=== PATIENT | female | born 1945 | race Caucasian/White ===

== ENCOUNTER 2023-12-08 14:30 | Outpatient (RCR) | payer MEDICARE, SELFPAY ==
--- NOTE | 2023-11-03 15:51 | PT.OIE ---
Current Diagnoses Parkinson's disease without dyskinesia, without mention of fluctuations (11/03/23) Unsteadiness on feet (11/03/23) Other abnormalities of gait and mobility (11/03/23) Other reduced mobility (11/03/23) Visit Care Team Role Provider Type Josef Arana MD Family Provider Non-Staff Primary Care Provider Specialty: Medical Address: [address] [place], [address] Email: Mila Hightower MD Attending Provider Non-Staff Referring Provider Specialty: Psychiatry Address: [address], [place]: [place], [place], [address] Email: Physical Therapy Initial Evaluation PT-OP-A Visit Information Start: 10/31/23 09:24 Freq: Status: Active Protocol: Document 11/03/23 13:00 MB (Rec: 11/03/23 13:21 MB [id number]) Out-Patient Physical Therapy Visit Information Visit Information Visit Type Initial Evaluation Visit Start Time 13:00 Visit Stop Time 13:40 Visit Number 1 Number of PRESS FEEDER Visits 0 Evaluation Information Evaluation Date 11/03/23 PT-OP-B Current Condition Start: 10/31/23 09:24 Freq: Status: Active Protocol: Document 11/03/23 13:00 MB (Rec: 11/03/23 13:21 [id number]) Current Condition History of Current Condition Onset Date July 2023 Current Complaints Imbalance and falls History of Current Condition Pt was dx with PD in 2008. She has seen 3 neurologists over the years. She had DBS implant on 07/29/23 mostly d/t severe right UE tremor that is now gone. Pt is right handed. Since the DBS implantation, she has had more imbalance and falling. She has had 4 falls in 2023 since the DBS implantation. She has fallen on the steps and she misjudges curbs and steps. She has not had any real dizziness or light-headedness lately. She has a straight cane that she is learning to use. She has no steps in the house and only one step to get into the house. , Aldo, is very helpful. Aldo does the driving. Devorah does her own bathing and dressing. Other medical history: arthritis, B TKR, LBP, memory loss, nerve block shot LB and spinal stenosis and she sees a spine doctor and will have another MRI Pt had PT for her PD in the past. She did therapy 1-2x/wk. Treatment Goals Patient/Caregiver Goals To improve balance and decrease falls PT-OP-C Subjective Start: 10/31/23 09:24 Freq: Status: Active Protocol: Document 11/03/23 13:00 MB (Rec: 11/03/23 13:21 MB [id number]) OP-PT Subjective Patient Comments Patient Comments See history of current condition Patient Questionnaires Other Questionnaire Name and Score FES score 33/64 PT-OP-D Balance Start: 10/31/23 09:24 Freq: Status: Active Protocol: Document 11/03/23 13:00 MB (Rec: 11/03/23 15:35 MB [id number]) OP-PT Balance Assessment Sitting Balance Static Sitting Balance Ability Normal Dynamic Sitting Balance Ability Good Standing Balance Static Standing Balance Ability Poor Dynamic Standing Balance Ability Poor Standing Balance Comments LOB and PT must catch pt has she falls posteriorly with attempted Romberg Balance Tests Romberg Romberg Unable, fall posteriorly Other Other Balance Tests Performed TUG in 11 sec with one episode of scuffing foot on carpet and CGA for safety Juarez Fall Scale Copyright Permission PT-OP-G Mobility & Gait Start: 10/31/23 09:24 Freq: Status: Active Protocol: Document 11/03/23 13:00 MB (Rec: 11/03/23 15:35 MB [id number]) OP Gait Assessment Comments Gait Comments Pt with unsteady gait and she brings in a SPC and states she needs to learn how to use it. Pt with very poor performance with SPC and used in right hand and she tends to advance with right foot rather than left foot. Ongoing training in gym and out to waiting area today with little progress. nearby and ed him as well PT-OP-H Neuro Start: 11/03/23 15:35 Freq: Status: Active Protocol: Document 11/03/23 13:00 MB (Rec: 11/03/23 15:37 MB [id number]) Coordination Evaluation Upper Extremity Tests Left Finger to Nose Test Minimal Impairment Right Finger to Nose Test Normal Performance Lower Extremity Tests Left Heel on Boudreaux Test Minimal Impairment Foot Tapping Test Normal Performance Right Heel on Boudreaux Test Normal Performance Foot Tapping Test Minimal Impairment Vital Signs Comments Vital Signs Comments Orthostatic assessment with BP and HR in LUE: supine 125/74, 78; standing 115/70, 82; standing 1' machine will not read again. Pt with mild light -headedness upon standing but no c/o light-headedness at home or when getting up PT-OP-M Strength Start: 10/31/23 09:24 Freq: Status: Active Protocol: Document 11/03/23 13:00 MB (Rec: 11/03/23 15:35 MB [id number]) Hip Strength Hip Manual Muscle Testing Bilateral Flexion (L2) 4+ Good+ Knee Strength Knee Manual Muscle Testing Bilateral Extension (L3) 5 Normal Ankle/Foot Strength Ankle and Foot Manual Muscle Testing Bilateral Dorsiflexion (L4) 5 Normal Toe Strength Toe Manual Muscle Testing Right Great Toe Extension 5 Normal Left Great Toe Extension 5 Normal PT-OP-Q Treatments Start: 10/31/23 09:24 Freq: Status: Active Protocol: Document 11/03/23 13:00 MB (Rec: 11/03/23 15:35 MB [id number]) Therapeutic Exercises Sitting Exercises 30 sec STS Reps/Minutes 15 reps in 30 sec Gait Training Gait Activity Gait training with cane Comments See gait comments above PT-OP-T Assessment and Plan Start: 10/31/23 09:24 Freq: Status: Active Protocol: Document 11/03/23 13:00 MB (Rec: 11/03/23 15:51 MB [id number]) Physical Therapy Assessment Rehab Potential Rehabilitation Potential Good Evaluation Complexity Number of Personal Factors/Comorbidities 1-2 Number of Body Systems Impaired 3 Clinical Presentation at Evaluation Evolving Impairments Impairments Activity Tolerance,Balance, Coordination,Functional Activities,Functional Mobility ,Gait,Posture,Transfers, Vestibular Other Concerns Fall Risk High Goals 5 Impairment Falls Vice President Of Marketing Goal (LTG) Pt will deny falling for at least a month to reduce risk of injury. LTG Duration 8 weeks 4 Impairment Lack of HEP Vice President [employer] Goal (LTG) Pt will perform progressive HEP with I including balance and LE and core strengthening exercises to improve gait and reduce fall risk. LTG Duration 8 weeks 3 Impairment Decreased gait speed and safety Longterm Goal (LTG) Pt will gait train at least 1200 feet in 6 minutes with or without use of AD to improve community ambulation. LTG Duration 8 weeks 2 Impairment FES 33/64 Vice President [employer] Marketing Goal (LTG) Pt will present with FES score of no more than 20/64 to reflect less fear of falling and improved quality of life. LTG Duration 8 weeks 1 Impairment Imbalance Longterm Goal (LTG) Pt will perform WNLs on standardized balance test to decrease fall risk. LTG Duration 8 weeks Assessment Summary Assessment Pt is a 78 y/o female with history of PD since 2008 and with recent DBS d/t right tremor. Her tremor has resolved since stimulator placement but her balance and gait have gotten worse. She has fall four times since July 2023 (four falls in four months). She presents with good MMT LE strength and functional LE strength with 30 sec STS today. She is severely imbalanced with static balance and dynamic balance and gait tasks. Initial cane training does not go well d/t coordination challenges and will con't to assess best AD if needed. TUG requires 11 sec and BP cuff does not read after standing 1 ' to get accurate orthostatic assessment. She does not c/o light-headedness at home. She will benefit from LE strengthening, core stability, postural, balance and gait activities to improve balance and function and to decrease fall risk. Physical Therapy Plan Frequency and Duration Frequency of Treatment 2x/Week Duration of treatment (weeks) 8 Plan of Care Start Date 11/03/23 Plan of Care End Date 01/03/24 Therapeutic Interventions Therapeutic Interventions Balance Training,Canalithic Repositioning,Coordination Training,Gait Training,Home Exercise Program,Joint Mobilizations,Manual Therapy, Neuromuscular Re-education, Patient/Caregiver Education, Self-Care/Home Management,Soft Tissue Mobilization,Taping, Therapeutic Activities, Therapeutic Exercises Modalities Cold Pack/Ice Massage,Electric Stimulation,Hot Packs, Ultrasound Next Visit Focus/Plan Next Note Type Treatment Note Next Visit Plan Further gait training with various ADs to see what works best for pt, initiate balance and LE strengthening and consider large amplitude exercises and [place] program exercises
--- NOTE | 2023-11-03 15:51 | PT.OPPOC ---
Physical, Occupational & Speech Therapy At [facility] Current Diagnoses Parkinson's disease without dyskinesia, without mention of fluctuations (11/03/23) Unsteadiness on feet (11/03/23) Other abnormalities of gait and mobility (11/03/23) Other reduced mobility (11/03/23) Visit Care Team Role Provider Type Josef Arana MD Family Provider Non-Staff Primary Care Provider Specialty: Medical Address: [address] [place], [address] Email: Mila Hightower MD Attending Provider Non-Staff Referring Provider Specialty: Psychiatry Address: [address], [place]: [place], [place], [address] Email: Plan Of Care PT-OP-T Assessment and Plan Start: 10/31/23 09:24 Freq: Status: Active Protocol: Document 11/03/23 13:00 MB (Rec: 11/03/23 15:51 MB [id number]) Physical Therapy Assessment Rehab Potential Rehabilitation Potential Good Evaluation Complexity Number of Personal Factors/Comorbidities 1-2 Number of Body Systems Impaired 3 Clinical Presentation at Evaluation Evolving Impairments Impairments Activity Tolerance,Balance, Coordination,Functional Activities,Functional Mobility ,Gait,Posture,Transfers, Vestibular Other Concerns Fall Risk High Goals 5 Impairment Falls Carpenter Railcar Goal (LTG) Pt will deny falling for at least a month to reduce risk of injury. LTG Duration 8 weeks 4 Impairment Lack of HEP Mcfp Goal (LTG) Pt will perform progressive HEP with I including balance and LE and core strengthening exercises to improve gait and reduce fall risk. LTG Duration 8 weeks 3 Impairment Decreased gait speed and safety Mcfp Goal (LTG) Pt will gait train at least 1200 feet in 6 minutes with or without use of AD to improve community ambulation. LTG Duration 8 weeks 2 Impairment FES 33/64 Carpenter Railcar Goal (LTG) Pt will present with FES score of no more than 20/64 to reflect less fear of falling and improved quality of life. LTG Duration 8 weeks 1 Impairment Imbalance Mcfp Goal (LTG) Pt will perform WNLs on standardized balance test to decrease fall risk. LTG Duration 8 weeks Assessment Summary Assessment Pt is a 78 y/o female with history of PD since 2008 and with recent DBS d/t right tremor. Her tremor has resolved since stimulator placement but her balance and gait have gotten worse. She has fall four times since July 2023 (four falls in four months). She presents with good MMT LE strength and functional LE strength with 30 sec STS today. She is severely imbalanced with static balance and dynamic balance and gait tasks. Initial cane training does not go well d/t coordination challenges and will con't to assess best AD if needed. TUG requires 11 sec and BP cuff does not read after standing 1 ' to get accurate orthostatic assessment. She does not c/o light-headedness at home. She will benefit from LE strengthening, core stability, postural, balance and gait activities to improve balance and function and to decrease fall risk. Physical Therapy Plan Frequency and Duration Frequency of Treatment 2x/Week Duration of treatment (weeks) 8 Plan of Care Start Date 11/03/23 Plan of Care End Date 01/03/24 Therapeutic Interventions Therapeutic Interventions Balance Training,Canalithic Repositioning,Coordination Training,Gait Training,Home Exercise Program,Joint Mobilizations,Manual Therapy, Neuromuscular Re-education, Patient/Caregiver Education, Self-Care/Home Management,Soft Tissue Mobilization,Taping, Therapeutic Activities, Therapeutic Exercises Modalities Cold Pack/Ice Massage,Electric Stimulation,Hot Packs, Ultrasound Next Visit Focus/Plan Next Note Type Treatment Note Next Visit Plan Further gait training with various ADs to see what works best for pt, initiate balance and LE strengthening and consider large amplitude exercises and [place] program exercises Plan of Care Dates Plan of Care Start Date 11/03/23 Plan of Care End Date 01/03/24 Electronically Signed by: Alesia Martínez PT 11/03/23 0489 If you are in agreement with this Plan of Care, please return a signed and dated copy. I have reviewed this Plan of Care and certify that the skilled therapy services above are required to meet the patient?s needs. Physician Signature Date Printed Name and Credentials Clinical Instructor Signature Printed Name and Credentials
--- NOTE | 2023-11-08 16:01 | PT.OTN ---
Current Diagnoses Parkinson's disease without dyskinesia, without mention of fluctuations (11/08/23) Unsteadiness on feet (11/08/23) Other abnormalities of gait and mobility (11/08/23) Other reduced mobility (11/08/23) Physical Therapy Treatment Note PT-OP-A Visit Information Start: 10/31/23 09:24 Freq: Status: Active Protocol: Document 11/08/23 15:11 MB (Rec: 11/08/23 16:01 MB [id number]) Out-Patient Physical Therapy Visit Information Visit Information Visit Type Treatment Note Visit Start Time 15:15 Visit Stop Time 15:55 Visit Number 2 Number of PLOW MECHANIC Visits 0 PT-OP-B Current Condition Start: 10/31/23 09:24 Freq: Status: Active Protocol: Document 11/03/23 13:00 MB (Rec: 11/03/23 13:21 MB [id number]) Current Condition History of Current Condition Onset Date July 2023 Current Complaints Imbalance and falls History of Current Condition Pt was dx with PD in 2008. She has seen 3 neurologists over the years. She had DBS implant on 07/29/23 mostly d/t severe right UE tremor that is now gone. Pt is right handed. Since the DBS implantation, she has had more imbalance and falling. She has had 4 falls in 2023 since the DBS implantation. She has fallen on the steps and she misjudges curbs and steps. She has not had any real dizziness or light-headedness lately. She has a straight cane that she is learning to use. She has no steps in the house and only one step to get into the house. , Aldo, is very helpful. Aldo does the driving. Devorah does her own bathing and dressing. Other medical history: arthritis, B TKR, LBP, memory loss, nerve block shot LB and spinal stenosis and she sees a spine doctor and will have another MRI Pt had PT for her PD in the past. She did therapy 1-2x/wk. Treatment Goals Patient/Caregiver Goals To improve balance and decrease falls PT-OP-C Subjective Start: 10/31/23 09:24 Freq: Status: Active Protocol: Document 11/08/23 15:11 MB (Rec: 11/08/23 16:01 MB [id number]) OP-PT Subjective Patient Comments Patient Comments Pt worked on the walking with the SPC and she is still having trouble with it. PT-OP-D Balance Start: 10/31/23 09:24 Freq: Status: Active Protocol: Document 11/03/23 13:00 MB (Rec: 11/03/23 15:35 MB [id number]) OP-PT Balance Assessment Sitting Balance Static Sitting Balance Ability Normal Dynamic Sitting Balance Ability Good Standing Balance Static Standing Balance Ability Poor Dynamic Standing Balance Ability Poor Standing Balance Comments LOB and PT must catch pt has she falls posteriorly with attempted Romberg Balance Tests Romberg Romberg Unable, fall posteriorly Other Other Balance Tests Performed TUG in 11 sec with one episode of scuffing foot on carpet and CGA for safety Juarez Fall Scale Copyright Permission PT-OP-G Mobility & Gait Start: 10/31/23 09:24 Freq: Status: Active Protocol: Document 11/03/23 13:00 MB (Rec: 11/03/23 15:35 MB [id number]) OP Gait Assessment Comments Gait Comments Pt with unsteady gait and she brings in a SPC and states she needs to learn how to use it. Pt with very poor performance with SPC and used in right hand and she tends to advance with right foot rather than left foot. Ongoing training in gym and out to waiting area today with little progress. nearby and ed him as well PT-OP-H Neuro Start: 11/03/23 15:35 Freq: Status: Active Protocol: Document 11/03/23 13:00 MB (Rec: 11/03/23 15:37 MB [id number]) Coordination Evaluation Upper Extremity Tests Left Finger to Nose Test Minimal Impairment Right Finger to Nose Test Normal Performance Lower Extremity Tests Left Heel on Boudreaux Test Minimal Impairment Foot Tapping Test Normal Performance Right Heel on Boudreaux Test Normal Performance Foot Tapping Test Minimal Impairment Vital Signs Comments Vital Signs Comments Orthostatic assessment with BP and HR in LUE: supine 125/74, 78; standing 115/70, 82; standing 1' machine will not read again. Pt with mild light -headedness upon standing but no c/o light-headedness at home or when getting up PT-OP-M Strength Start: 10/31/23 09:24 Freq: Status: Active Protocol: Document 11/03/23 13:00 MB (Rec: 11/03/23 15:35 MB [id number]) Hip Strength Hip Manual Muscle Testing Bilateral Flexion (L2) 4+ Good+ Knee Strength Knee Manual Muscle Testing Bilateral Extension (L3) 5 Normal Ankle/Foot Strength Ankle and Foot Manual Muscle Testing Bilateral Dorsiflexion (L4) 5 Normal Toe Strength Toe Manual Muscle Testing Right Great Toe Extension 5 Normal Left Great Toe Extension 5 Normal PT-OP-Q Treatments Start: 10/31/23 09:24 Freq: Status: Active Protocol: Document 11/08/23 15:11 MB (Rec: 11/08/23 16:01 [id number]) Gait Training Gait Activity Gait training with rollator Comments Balance, gait pattern, reciprocal gait and speed and stability are much better with rollator. Ed pt on locking and unlocking, how to sit down upon and stand up from, back up to car with rollator, gait in grass and up and down curb with cues and occ min A for curb training and CGA other gait surfaces. Gait training with two or one walking sticks Comments Pt tends to step too long and quickly and drags sticks behind, lowered sticks and she did better picking it up. One stick in right hand looks better than the cane 6MWT Comments 1101 feet in 6 minutes and pt with intermittent dysmetria in right LE and in right UE, decreased arm swing on the right and occ IR positioning right LE with gait Gait training with cane Comments Pt con't to have a lot of trouble with using cane in right and left hand, trouble advancing cane with opposite foot and gait pattern is more steady without use of cane PT-OP-T Assessment and Plan Start: 10/31/23 09:24 Freq: Status: Active Protocol: Document 11/08/23 15:11 MB (Rec: 11/08/23 16:01 [id number]) Physical Therapy Assessment Rehab Potential Rehabilitation Potential Good Evaluation Complexity Number of Personal Factors/Comorbidities 1-2 Number of Body Systems Impaired 3 Clinical Presentation at Evaluation Evolving Impairments Impairments Activity Tolerance,Balance, Coordination,Functional Activities,Functional Mobility ,Gait,Posture,Transfers, Vestibular Other Concerns Fall Risk High Goals 5 Impairment Falls Route Inspector Goal (LTG) Pt will deny falling for at least a month to reduce risk of injury. LTG Duration 8 weeks 4 Impairment Lack of HEP Snf Goal (LTG) Pt will perform progressive HEP with I including balance and LE and core strengthening exercises to improve gait and reduce fall risk. LTG Duration 8 weeks 3 Impairment Decreased gait speed and safety Snf Goal (LTG) Pt will gait train at least 1200 feet in 6 minutes with or without use of AD to improve community ambulation. LTG Duration 8 weeks 2 Impairment FES 33/64 Route Inspector Goal (LTG) Pt will present with FES score of no more than 20/64 to reflect less fear of falling and improved quality of life. LTG Duration 8 weeks 1 Impairment Imbalance Snf Goal (LTG) Pt will perform WNLs on standardized balance test to decrease fall risk. LTG Duration 8 weeks Assessment Summary Assessment Gait training with various ADs today and pt is most safe with rollator outside. Physical Therapy Plan Frequency and Duration Frequency of Treatment 2x/Week Duration of treatment (weeks) 8 Plan of Care Start Date 11/03/23 Plan of Care End Date 01/03/24 Therapeutic Interventions Therapeutic Interventions Balance Training,Canalithic Repositioning,Coordination Training,Gait Training,Home Exercise Program,Joint Mobilizations,Manual Therapy, Neuromuscular Re-education, Patient/Caregiver Education, Self-Care/Home Management,Soft Tissue Mobilization,Taping, Therapeutic Activities, Therapeutic Exercises Modalities Cold Pack/Ice Massage,Electric Stimulation,Hot Packs, Ultrasound Next Visit Focus/Plan Next Note Type Treatment Note Next Visit Plan [place] balance testing, step training, other Balance actitivies and LE strengthening and consider large amplitude exercises and [place] program exercises
--- NOTE | 2023-11-10 15:38 | PT.OTN ---
Current Diagnoses Parkinson's disease without dyskinesia, without mention of fluctuations (11/10/23) Unsteadiness on feet (11/10/23) Other abnormalities of gait and mobility (11/10/23) Other reduced mobility (11/10/23) Physical Therapy Treatment Note PT-OP-A Visit Information Start: 10/31/23 09:24 Freq: Status: Active Protocol: Document 11/10/23 14:32 MB (Rec: 11/10/23 15:38 MB [id number]) Out-Patient Physical Therapy Visit Information Visit Information Visit Type Treatment Note Visit Start Time 14:32 Visit Stop Time 15:12 Visit Number 3 Number of ONLINE TRADER Visits 0 PT-OP-B Current Condition Start: 10/31/23 09:24 Freq: Status: Active Protocol: Document 11/03/23 13:00 MB (Rec: 11/03/23 13:21 MB [id number]) Current Condition History of Current Condition Onset Date July 2023 Current Complaints Imbalance and falls History of Current Condition Pt was dx with PD in 2008. She has seen 3 neurologists over the years. She had DBS implant on 07/29/23 mostly d/t severe right UE tremor that is now gone. Pt is right handed. Since the DBS implantation, she has had more imbalance and falling. She has had 4 falls in 2023 since the DBS implantation. She has fallen on the steps and she misjudges curbs and steps. She has not had any real dizziness or light-headedness lately. She has a straight cane that she is learning to use. She has no steps in the house and only one step to get into the house. , Aldo, is very helpful. Aldo does the driving. Devorah does her own bathing and dressing. Other medical history: arthritis, B TKR, LBP, memory loss, nerve block shot LB and spinal stenosis and she sees a spine doctor and will have another MRI Pt had PT for her PD in the past. She did therapy 1-2x/wk. Treatment Goals Patient/Caregiver Goals To improve balance and decrease falls PT-OP-C Subjective Start: 10/31/23 09:24 Freq: Status: Active Protocol: Document 11/10/23 14:32 MB (Rec: 11/10/23 15:38 MB [id number]) OP-PT Subjective Patient Comments Patient Comments Pt did not yet go for a walk with the walker yet. PT-OP-D Balance Start: 10/31/23 09:24 Freq: Status: Active Protocol: Document 11/03/23 13:00 MB (Rec: 11/03/23 15:35 MB [id number]) OP-PT Balance Assessment Sitting Balance Static Sitting Balance Ability Normal Dynamic Sitting Balance Ability Good Standing Balance Static Standing Balance Ability Poor Dynamic Standing Balance Ability Poor Standing Balance Comments LOB and PT must catch pt has she falls posteriorly with attempted Romberg Balance Tests Romberg Romberg Unable, fall posteriorly Other Other Balance Tests Performed TUG in 11 sec with one episode of scuffing foot on carpet and CGA for safety Juarez Fall Scale Copyright Permission PT-OP-G Mobility & Gait Start: 10/31/23 09:24 Freq: Status: Active Protocol: Document 11/03/23 13:00 MB (Rec: 11/03/23 15:35 MB [id number]) OP Gait Assessment Comments Gait Comments Pt with unsteady gait and she brings in a SPC and states she needs to learn how to use it. Pt with very poor performance with SPC and used in right hand and she tends to advance with right foot rather than left foot. Ongoing training in gym and out to waiting area today with little progress. nearby and ed him as well PT-OP-H Neuro Start: 11/03/23 15:35 Freq: Status: Active Protocol: Document 11/03/23 13:00 MB (Rec: 11/03/23 15:37 MB [id number]) Coordination Evaluation Upper Extremity Tests Left Finger to Nose Test Minimal Impairment Right Finger to Nose Test Normal Performance Lower Extremity Tests Left Heel on Boudreaux Test Minimal Impairment Foot Tapping Test Normal Performance Right Heel on Boudreaux Test Normal Performance Foot Tapping Test Minimal Impairment Vital Signs Comments Vital Signs Comments Orthostatic assessment with BP and HR in LUE: supine 125/74, 78; standing 115/70, 82; standing 1' machine will not read again. Pt with mild light -headedness upon standing but no c/o light-headedness at home or when getting up PT-OP-M Strength Start: 10/31/23 09:24 Freq: Status: Active Protocol: Document 11/03/23 13:00 MB (Rec: 11/03/23 15:35 MB [id number]) Hip Strength Hip Manual Muscle Testing Bilateral Flexion (L2) 4+ Good+ Knee Strength Knee Manual Muscle Testing Bilateral Extension (L3) 5 Normal Ankle/Foot Strength Ankle and Foot Manual Muscle Testing Bilateral Dorsiflexion (L4) 5 Normal Toe Strength Toe Manual Muscle Testing Right Great Toe Extension 5 Normal Left Great Toe Extension 5 Normal PT-OP-Q Treatments Start: 10/31/23 09:24 Freq: Status: Active Protocol: Document 11/10/23 14:32 MB (Rec: 11/10/23 15:38 MB [id number]) Gait Training Gait Activity Gait training with rollator Comments Gait training with rollator today to work on larger amplitude, BIG stepping and pt 's gait looks much better with rollator than without AD and PT con't to encourage pt to gait with rollator to improve gait pattern since that is what she wants to work on and given central changes from PD Neuro Re-Education Treatment Balance Activities Corner exercise Comments Romberg and Romberg EC are too easy, partial tandem is challenging enough and more trouble with right toe in instep of left foot Medina Comments 41/56 and most trouble with attempted SLS and tandem Self-Care/Home Management Treatment Education Other Education Provided handout about LSVT BIG and ed to pt and then , Aldo, after treatment about benefits of high intensity PT treatment focused on large amplitude gait and exercise and pt and to think about. Pt needs back injection and lives in [facility]. PT-OP-T Assessment and Plan Start: 10/31/23 09:24 Freq: Status: Active Protocol: Document 11/10/23 14:32 MB (Rec: 11/10/23 15:38 MB [id number]) Physical Therapy Assessment Rehab Potential Rehabilitation Potential Good Evaluation Complexity Number of Personal Factors/Comorbidities 1-2 Number of Body Systems Impaired 3 Clinical Presentation at Evaluation Evolving Impairments Impairments Activity Tolerance,Balance, Coordination,Functional Activities,Functional Mobility ,Gait,Posture,Transfers, Vestibular Other Concerns Fall Risk High Goals 5 Impairment Falls Crop Farm Helper Goal (LTG) Pt will deny falling for at least a month to reduce risk of injury. LTG Duration 8 weeks 4 Impairment Lack of HEP Mcfp Goal (LTG) Pt will perform progressive HEP with I including balance and LE and core strengthening exercises to improve gait and reduce fall risk. LTG Duration 8 weeks 3 Impairment Decreased gait speed and safety Mcfp Goal (LTG) Pt will gait train at least 1200 feet in 6 minutes with or without use of AD to improve community ambulation. LTG Duration 8 weeks 2 Impairment FES 33/64 Mcfp Goal (LTG) Pt will present with FES score of no more than 20/64 to reflect less fear of falling and improved quality of life. LTG Duration 8 weeks 1 Impairment Imbalance Mcfp Goal (LTG) Pt will perform WNLs on standardized balance test to decrease fall risk. LTG Duration 8 weeks Assessment Summary Assessment Medina score 41/56 today indicating increased risk for falling and added partial tandem to HEP today. Worked on large amplitude gait and work on getting in large amplitude exercises into PT course. Physical Therapy Plan Frequency and Duration Frequency of Treatment 2x/Week Duration of treatment (weeks) 8 Plan of Care Start Date 11/03/23 Plan of Care End Date 01/03/24 Therapeutic Interventions Therapeutic Interventions Balance Training,Canalithic Repositioning,Coordination Training,Gait Training,Home Exercise Program,Joint Mobilizations,Manual Therapy, Neuromuscular Re-education, Patient/Caregiver Education, Self-Care/Home Management,Soft Tissue Mobilization,Taping, Therapeutic Activities, Therapeutic Exercises Modalities Cold Pack/Ice Massage,Electric Stimulation,Hot Packs, Ultrasound Next Visit Focus/Plan Next Note Type Treatment Note Next Visit Plan Step training, other Balance actitivies and LE strengthening and consider large amplitude exercises and [place] program exercises
--- NOTE | 2023-11-15 16:04 | PT.OTN ---
Current Diagnoses Parkinson's disease without dyskinesia, without mention of fluctuations (11/15/23) Unsteadiness on feet (11/15/23) Other abnormalities of gait and mobility (11/15/23) Other reduced mobility (11/15/23) Physical Therapy Treatment Note PT-OP-A Visit Information Start: 10/31/23 09:24 Freq: Status: Active Protocol: Document 11/15/23 15:17 MB (Rec: 11/15/23 16:04 MB [id number]) Out-Patient Physical Therapy Visit Information Visit Information Visit Type Treatment Note Visit Start Time 15:17 Visit Stop Time 15:57 Visit Number 4 Number of PLANT OPERATOR/SHIFT SUPERVISOR Visits 0 PT-OP-B Current Condition Start: 10/31/23 09:24 Freq: Status: Active Protocol: Document 11/03/23 13:00 MB (Rec: 11/03/23 13:21 MB [id number]) Current Condition History of Current Condition Onset Date July 2023 Current Complaints Imbalance and falls History of Current Condition Pt was dx with PD in 2008. She has seen 3 neurologists over the years. She had DBS implant on 07/29/23 mostly d/t severe right UE tremor that is now gone. Pt is right handed. Since the DBS implantation, she has had more imbalance and falling. She has had 4 falls in 2023 since the DBS implantation. She has fallen on the steps and she misjudges curbs and steps. She has not had any real dizziness or light-headedness lately. She has a straight cane that she is learning to use. She has no steps in the house and only one step to get into the house. , Aldo, is very helpful. Aldo does the driving. Devorah does her own bathing and dressing. Other medical history: arthritis, B TKR, LBP, memory loss, nerve block shot LB and spinal stenosis and she sees a spine doctor and will have another MRI Pt had PT for her PD in the past. She did therapy 1-2x/wk. Treatment Goals Patient/Caregiver Goals To improve balance and decrease falls PT-OP-C Subjective Start: 10/31/23 09:24 Freq: Status: Active Protocol: Document 11/15/23 15:17 MB (Rec: 11/15/23 16:04 MB [id number]) OP-PT Subjective Patient Comments Patient Comments Pt and ask about a stand up walker and after discussion, PT encourages pt to go ahead and get a regular 4WRW. Pt is going to have a back injection for stenosis in the next few weeks. Her memory is worse after the brain surgery and she is seeing Joe ADJUNCT INSTRUCTOR, for this. PT-OP-D Balance Start: 10/31/23 09:24 Freq: Status: Active Protocol: Document 11/03/23 13:00 MB (Rec: 11/03/23 15:35 MB [id number]) OP-PT Balance Assessment Sitting Balance Static Sitting Balance Ability Normal Dynamic Sitting Balance Ability Good Standing Balance Static Standing Balance Ability Poor Dynamic Standing Balance Ability Poor Standing Balance Comments LOB and PT must catch pt has she falls posteriorly with attempted Romberg Balance Tests Romberg Romberg Unable, fall posteriorly Other Other Balance Tests Performed TUG in 11 sec with one episode of scuffing foot on carpet and CGA for safety Juarez Fall Scale Copyright Permission PT-OP-G Mobility & Gait Start: 10/31/23 09:24 Freq: Status: Active Protocol: Document 11/03/23 13:00 MB (Rec: 11/03/23 15:35 MB [id number]) OP Gait Assessment Comments Gait Comments Pt with unsteady gait and she brings in a SPC and states she needs to learn how to use it. Pt with very poor performance with SPC and used in right hand and she tends to advance with right foot rather than left foot. Ongoing training in gym and out to waiting area today with little progress. nearby and ed him as well PT-OP-H Neuro Start: 11/03/23 15:35 Freq: Status: Active Protocol: Document 11/03/23 13:00 MB (Rec: 11/03/23 15:37 MB [id number]) Coordination Evaluation Upper Extremity Tests Left Finger to Nose Test Minimal Impairment Right Finger to Nose Test Normal Performance Lower Extremity Tests Left Heel on Boudreaux Test Minimal Impairment Foot Tapping Test Normal Performance Right Heel on Boudreaux Test Normal Performance Foot Tapping Test Minimal Impairment Vital Signs Comments Vital Signs Comments Orthostatic assessment with BP and HR in LUE: supine 125/74, 78; standing 115/70, 82; standing 1' machine will not read again. Pt with mild light -headedness upon standing but no c/o light-headedness at home or when getting up PT-OP-M Strength Start: 10/31/23 09:24 Freq: Status: Active Protocol: Document 11/03/23 13:00 MB (Rec: 11/03/23 15:35 MB [id number]) Hip Strength Hip Manual Muscle Testing Bilateral Flexion (L2) 4+ Good+ Knee Strength Knee Manual Muscle Testing Bilateral Extension (L3) 5 Normal Ankle/Foot Strength Ankle and Foot Manual Muscle Testing Bilateral Dorsiflexion (L4) 5 Normal Toe Strength Toe Manual Muscle Testing Right Great Toe Extension 5 Normal Left Great Toe Extension 5 Normal PT-OP-Q Treatments Start: 10/31/23 09:24 Freq: Status: Active Protocol: Document 11/15/23 15:17 MB (Rec: 11/15/23 16:04 MB [id number]) Gait Training Gait Activity BIG walking without AD Comments Performed in gym and out into waiting area various times during treatment to improve symmetrical BIG stepping in setting of right sided dysmetria with UE and LE Neuro Re-Education Treatment Balance Activities Cone weaving Comments Easier for pt and right arm con't to move and left arm does not // bar activities Comments BIG stepping one foot per step over mini kayden, all hurdles in // bars x8 reps and pt with dysmetria with right LE, especially when leading with the foot. Side stepping looks good as far as BIG steps and cues to clear right foot when left foot leading (side stepping to left) and cues not to hear the right foot. Backwards steps tend to be more step-to right and then left foot rather than step through and cues for ongoing step-through and her right arm moves some and left arm near side and more dysmmetria with this activity, backward walking in hallway with ballet bar at side and pt has increased right arm swing with backward walker, driving movement through right arm, more work with mini hurdles with BIG steps and clearning hurdles and pt is able to perform well when thinking through it and she does fatigue, some arm sliding on the // bars, three cone tap with one on each side and one on top with hand support on // bar and pt tends to turn towards the cone rather than reach outside base Self-Care/Home Management Treatment Education Other Education Discussion and viewing walker photos with pt and and education that standard rollator is best for pt right now so that she has smaller turning range and can work on big stepping with gait to improve amplitude PT-OP-T Assessment and Plan Start: 10/31/23 09:24 Freq: Status: Active Protocol: Document 11/15/23 15:17 MB (Rec: 11/15/23 16:04 MB [id number]) Physical Therapy Assessment Rehab Potential Rehabilitation Potential Good Evaluation Complexity Number of Personal Factors/Comorbidities 1-2 Number of Body Systems Impaired 3 Clinical Presentation at Evaluation Evolving Impairments Impairments Activity Tolerance,Balance, Coordination,Functional Activities,Functional Mobility ,Gait,Posture,Transfers, Vestibular Other Concerns Fall Risk High Goals 5 Impairment Falls Plant Production Manager Goal (LTG) Pt will deny falling for at least a month to reduce risk of injury. LTG Duration 8 weeks 4 Impairment Lack of HEP Fdc Goal (LTG) Pt will perform progressive HEP with I including balance and LE and core strengthening exercises to improve gait and reduce fall risk. LTG Duration 8 weeks 3 Impairment Decreased gait speed and safety Plant Production Manager Goal (LTG) Pt will gait train at least 1200 feet in 6 minutes with or without use of AD to improve community ambulation. LTG Duration 8 weeks 2 Impairment FES 33/64 Fdc Goal (LTG) Pt will present with FES score of no more than 20/64 to reflect less fear of falling and improved quality of life. LTG Duration 8 weeks 1 Impairment Imbalance Plant Production Manager Goal (LTG) Pt will perform WNLs on standardized balance test to decrease fall risk. LTG Duration 8 weeks Assessment Summary Assessment For home, encouraged pt and to work on walking outside with and rollator for exercise and to get used to walker and for pt to con't partial tandem. Right sided dysmetria con't in right leg and right arm with gait. Physical Therapy Plan Frequency and Duration Frequency of Treatment 2x/Week Duration of treatment (weeks) 8 Plan of Care Start Date 11/03/23 Plan of Care End Date 01/03/24 Therapeutic Interventions Therapeutic Interventions Balance Training,Canalithic Repositioning,Coordination Training,Gait Training,Home Exercise Program,Joint Mobilizations,Manual Therapy, Neuromuscular Re-education, Patient/Caregiver Education, Self-Care/Home Management,Soft Tissue Mobilization,Taping, Therapeutic Activities, Therapeutic Exercises Modalities Cold Pack/Ice Massage,Electric Stimulation,Hot Packs, Ultrasound Next Visit Focus/Plan Next Note Type Treatment Note Next Visit Plan Ongoing balance actitivies and LE strengthening and consider large amplitude exercises and [place] program exercises, consider adding balance exercises for to assist with at home
--- NOTE | 2023-11-18 13:02 | PT.OTN ---
Current Diagnoses Parkinson's disease without dyskinesia, without mention of fluctuations (11/18/23) Unsteadiness on feet (11/18/23) Other abnormalities of gait and mobility (11/18/23) Other reduced mobility (11/18/23) Physical Therapy Treatment Note PT-OP-A Visit Information Start: 10/31/23 09:24 Freq: Status: Active Protocol: Document 11/18/23 10:37 SW (Rec: 11/18/23 13:02 SW [id number]) Out-Patient Physical Therapy Visit Information Visit Information Visit Type Treatment Note Visit Start Time 10:32 Visit Stop Time 10:12 Visit Number 5 Number of ENGINEERING AIDE Visits 40 PT-OP-B Current Condition Start: 10/31/23 09:24 Freq: Status: Active Protocol: Document 11/03/23 13:00 MB (Rec: 11/03/23 13:21 MB [id number]) Current Condition History of Current Condition Onset Date July 2023 Current Complaints Imbalance and falls History of Current Condition Pt was dx with PD in 2008. She has seen 3 neurologists over the years. She had DBS implant on 07/29/23 mostly d/t severe right UE tremor that is now gone. Pt is right handed. Since the DBS implantation, she has had more imbalance and falling. She has had 4 falls in 2023 since the DBS implantation. She has fallen on the steps and she misjudges curbs and steps. She has not had any real dizziness or light-headedness lately. She has a straight cane that she is learning to use. She has no steps in the house and only one step to get into the house. , Aldo, is very helpful. Aldo does the driving. Devorah does her own bathing and dressing. Other medical history: arthritis, B TKR, LBP, memory loss, nerve block shot LB and spinal stenosis and she sees a spine doctor and will have another MRI Pt had PT for her PD in the past. She did therapy 1-2x/wk. Treatment Goals Patient/Caregiver Goals To improve balance and decrease falls PT-OP-C Subjective Start: 10/31/23 09:24 Freq: Status: Active Protocol: Document 11/18/23 10:37 SW (Rec: 11/18/23 13:02 SW [id number]) OP-PT Subjective Patient Comments Patient Comments Pt ambulated into session today with 4WW. PT-OP-D Balance Start: 10/31/23 09:24 Freq: Status: Active Protocol: Document 11/03/23 13:00 MB (Rec: 11/03/23 15:35 MB [id number]) OP-PT Balance Assessment Sitting Balance Static Sitting Balance Ability Normal Dynamic Sitting Balance Ability Good Standing Balance Static Standing Balance Ability Poor Dynamic Standing Balance Ability Poor Standing Balance Comments LOB and PT must catch pt has she falls posteriorly with attempted Romberg Balance Tests Romberg Romberg Unable, fall posteriorly Other Other Balance Tests Performed TUG in 11 sec with one episode of scuffing foot on carpet and CGA for safety Juarez Fall Scale Copyright Permission PT-OP-G Mobility & Gait Start: 10/31/23 09:24 Freq: Status: Active Protocol: Document 11/03/23 13:00 MB (Rec: 11/03/23 15:35 MB [id number]) OP Gait Assessment Comments Gait Comments Pt with unsteady gait and she brings in a SPC and states she needs to learn how to use it. Pt with very poor performance with SPC and used in right hand and she tends to advance with right foot rather than left foot. Ongoing training in gym and out to waiting area today with little progress. nearby and ed him as well PT-OP-H Neuro Start: 11/03/23 15:35 Freq: Status: Active Protocol: Document 11/03/23 13:00 MB (Rec: 11/03/23 15:37 MB [id number]) Coordination Evaluation Upper Extremity Tests Left Finger to Nose Test Minimal Impairment Right Finger to Nose Test Normal Performance Lower Extremity Tests Left Heel on Boudreaux Test Minimal Impairment Foot Tapping Test Normal Performance Right Heel on Boudreaux Test Normal Performance Foot Tapping Test Minimal Impairment Vital Signs Comments Vital Signs Comments Orthostatic assessment with BP and HR in LUE: supine 125/74, 78; standing 115/70, 82; standing 1' machine will not read again. Pt with mild light -headedness upon standing but no c/o light-headedness at home or when getting up PT-OP-M Strength Start: 10/31/23 09:24 Freq: Status: Active Protocol: Document 11/03/23 13:00 MB (Rec: 11/03/23 15:35 MB [id number]) Hip Strength Hip Manual Muscle Testing Bilateral Flexion (L2) 4+ Good+ Knee Strength Knee Manual Muscle Testing Bilateral Extension (L3) 5 Normal Ankle/Foot Strength Ankle and Foot Manual Muscle Testing Bilateral Dorsiflexion (L4) 5 Normal Toe Strength Toe Manual Muscle Testing Right Great Toe Extension 5 Normal Left Great Toe Extension 5 Normal PT-OP-Q Treatments Start: 10/31/23 09:24 Freq: Status: Active Protocol: Document 11/18/23 10:37 (Rec: 11/18/23 13:02 [id number]) Gait Training Gait Activity Gait training with 4WW Description Gait Training Device Used 4WW Level of Assistance SBA Surface Tile/carpet Distance/Duration 170ft x 4 Treatment Focus Correct use of 4WW, gait mechanics Comments cues for tall posture and heel strike to increase foot clearance, improved with distance. Gait Training Description In PT only- Gait training- in part Device Used // bars Level of Assistance CGA, close SBA, // bars Surface stable Treatment Focus Large amplitude step with contralateral UE Comments Breaking whole into part. pt challenged with balance during large steps with contalateral UE, difficulty coordinating movement, educated pt and Aldo, that this is for in session only, not to carryover at home Neuro Re-Education Treatment Balance Activities // bar activities Comments Step over x 1 kayden, Reciprocal stepping Corner exercise Comments Partial tandem, Slow march for progress toward SLS balance PT-OP-T Assessment and Plan Start: 10/31/23 09:24 Freq: Status: Active Protocol: Document 11/18/23 10:37 (Rec: 11/18/23 13:02 [id number]) Physical Therapy Assessment Goals 5 Impairment Falls Supervisor Pairing And Inspecting Goal (LTG) Pt will deny falling for at least a month to reduce risk of injury. LTG Duration 8 weeks 4 Impairment Lack of HEP Fdc Goal (LTG) Pt will perform progressive HEP with I including balance and LE and core strengthening exercises to improve gait and reduce fall risk. LTG Duration 8 weeks 3 Impairment Decreased gait speed and safety Supervisor Pairing And Inspecting Goal (LTG) Pt will gait train at least 1200 feet in 6 minutes with or without use of AD to improve community ambulation. LTG Duration 8 weeks 2 Impairment FES 33/64 Supervisor Pairing And Inspecting Goal (LTG) Pt will present with FES score of no more than 20/64 to reflect less fear of falling and improved quality of life. LTG Duration 8 weeks 1 Impairment Imbalance Fdc Goal (LTG) Pt will perform WNLs on standardized balance test to decrease fall risk. LTG Duration 8 weeks Assessment Summary Assessment Pt ambulated into session with 4WW today with forward posture, adjusted to correct height. Initiated gait taining with 4WW, cues to stay closer to walker for safety and to promote good posture, cues for heel strike to increase foot clearance. Practiced large amplitude reciprocal stepping, pt challenged with coordination. Pt reported weather was not conducive to outdoor ambulation between sessions, has not had a chance to practice yet. Encouraged pt to continue safe prescribed balance activity at home further gait w/ assist of Aldo. Physical Therapy Plan Frequency and Duration Frequency of Treatment 2x/Week Duration of treatment (weeks) 8 Plan of Care Start Date 11/03/23 Plan of Care End Date 01/03/24 Therapeutic Interventions Therapeutic Interventions Balance Training,Canalithic Repositioning,Coordination Training,Gait Training,Home Exercise Program,Joint Mobilizations,Manual Therapy, Neuromuscular Re-education, Patient/Caregiver Education, Self-Care/Home Management,Soft Tissue Mobilization,Taping, Therapeutic Activities, Therapeutic Exercises Modalities Cold Pack/Ice Massage,Electric Stimulation,Hot Packs, Ultrasound Next Visit Focus/Plan Next Note Type Treatment Note Next Visit Plan Ongoing balance actitivies and LE strengthening and consider large amplitude exercises and [place] program exercises, consider adding balance exercises for to assist with at home
--- NOTE | 2023-11-23 09:47 | PT.OTN ---
Current Diagnoses Parkinson's disease without dyskinesia, without mention of fluctuations (11/23/23) Unsteadiness on feet (11/23/23) Other abnormalities of gait and mobility (11/23/23) Other reduced mobility (11/23/23) Physical Therapy Treatment Note PT-OP-A Visit Information Start: 10/31/23 09:24 Freq: Status: Active Protocol: Document 11/23/23 09:00 MB (Rec: 11/23/23 09:38 MB [id number]) Out-Patient Physical Therapy Visit Information Visit Information Visit Type Treatment Note Visit Note Prog note with PT 12/07 Visit Start Time 09:00 Visit Stop Time 09:40 Visit Number 6 Number of LATHE TURNER Visits 0 PT-OP-B Current Condition Start: 10/31/23 09:24 Freq: Status: Active Protocol: Document 11/03/23 13:00 MB (Rec: 11/03/23 13:21 MB [id number]) Current Condition History of Current Condition Onset Date July 2023 Current Complaints Imbalance and falls History of Current Condition Pt was dx with PD in 2008. She has seen 3 neurologists over the years. She had DBS implant on 07/29/23 mostly d/t severe right UE tremor that is now gone. Pt is right handed. Since the DBS implantation, she has had more imbalance and falling. She has had 4 falls in 2023 since the DBS implantation. She has fallen on the steps and she misjudges curbs and steps. She has not had any real dizziness or light-headedness lately. She has a straight cane that she is learning to use. She has no steps in the house and only one step to get into the house. , Aldo, is very helpful. Aldo does the driving. Devorah does her own bathing and dressing. Other medical history: arthritis, B TKR, LBP, memory loss, nerve block shot LB and spinal stenosis and she sees a spine doctor and will have another MRI Pt had PT for her PD in the past. She did therapy 1-2x/wk. Treatment Goals Patient/Caregiver Goals To improve balance and decrease falls PT-OP-C Subjective Start: 10/31/23 09:24 Freq: Status: Active Protocol: Document 11/18/23 10:37 SW (Rec: 11/18/23 13:02 SW [id number]) OP-PT Subjective Patient Comments Patient Comments Pt ambulated into session today with 4WW. PT-OP-D Balance Start: 10/31/23 09:24 Freq: Status: Active Protocol: Document 11/03/23 13:00 MB (Rec: 11/03/23 15:35 MB [id number]) OP-PT Balance Assessment Sitting Balance Static Sitting Balance Ability Normal Dynamic Sitting Balance Ability Good Standing Balance Static Standing Balance Ability Poor Dynamic Standing Balance Ability Poor Standing Balance Comments LOB and PT must catch pt has she falls posteriorly with attempted Romberg Balance Tests Romberg Romberg Unable, fall posteriorly Other Other Balance Tests Performed TUG in 11 sec with one episode of scuffing foot on carpet and CGA for safety Juarez Fall Scale Copyright Permission PT-OP-G Mobility & Gait Start: 10/31/23 09:24 Freq: Status: Active Protocol: Document 11/03/23 13:00 MB (Rec: 11/03/23 15:35 MB [id number]) OP Gait Assessment Comments Gait Comments Pt with unsteady gait and she brings in a SPC and states she needs to learn how to use it. Pt with very poor performance with SPC and used in right hand and she tends to advance with right foot rather than left foot. Ongoing training in gym and out to waiting area today with little progress. nearby and ed him as well PT-OP-H Neuro Start: 11/03/23 15:35 Freq: Status: Active Protocol: Document 11/03/23 13:00 MB (Rec: 11/03/23 15:37 MB [id number]) Coordination Evaluation Upper Extremity Tests Left Finger to Nose Test Minimal Impairment Right Finger to Nose Test Normal Performance Lower Extremity Tests Left Heel on Boudreaux Test Minimal Impairment Foot Tapping Test Normal Performance Right Heel on Boudreaux Test Normal Performance Foot Tapping Test Minimal Impairment Vital Signs Comments Vital Signs Comments Orthostatic assessment with BP and HR in LUE: supine 125/74, 78; standing 115/70, 82; standing 1' machine will not read again. Pt with mild light -headedness upon standing but no c/o light-headedness at home or when getting up PT-OP-M Strength Start: 10/31/23 09:24 Freq: Status: Active Protocol: Document 11/03/23 13:00 MB (Rec: 11/03/23 15:35 MB [id number]) Hip Strength Hip Manual Muscle Testing Bilateral Flexion (L2) 4+ Good+ Knee Strength Knee Manual Muscle Testing Bilateral Extension (L3) 5 Normal Ankle/Foot Strength Ankle and Foot Manual Muscle Testing Bilateral Dorsiflexion (L4) 5 Normal Toe Strength Toe Manual Muscle Testing Right Great Toe Extension 5 Normal Left Great Toe Extension 5 Normal PT-OP-Q Treatments Start: 10/31/23 09:24 Freq: Status: Active Protocol: Document 11/23/23 09:00 MB (Rec: 11/23/23 09:38 [id number]) Gait Training Gait Activity BIG steps and arm swing with canes Comments Pt does better with arm swing when she is behind following PT rather than being in front with both hands on walking sticks. Performed several reps with pt, then with and then pt and work. Without walking sticks, ongoing dysmetria and hypermoble movements right arm and ongoing decreased left arm swing. Many reps and left arm is slightly better after training with walking sticks and pt and to practice BIG steps and arm swings as trained with walking sticks today and then walk after practice to see carryover Neuro Re-Education Treatment Balance Activities Counter exercises Comments Slow and high marches x10 on each leg. Partial tandem up to 1' each leg // bar activities Comments BIG stepping one foot per step over mini kayden, all hurdles in // bars x8 reps and pt with dysmetria with right LE, especially when leading with the foot. Must have B UE support on // bars, superv. Backwards steps look better today with better step-through PT-OP-T Assessment and Plan Start: 10/31/23 09:24 Freq: Status: Active Protocol: Document 11/23/23 09:00 MB (Rec: 11/23/23 09:38 [id number]) Physical Therapy Assessment Rehab Potential Rehabilitation Potential Good Evaluation Complexity Number of Personal Factors/Comorbidities 1-2 Number of Body Systems Impaired 3 Clinical Presentation at Evaluation Evolving Impairments Impairments Activity Tolerance,Balance, Coordination,Functional Activities,Functional Mobility ,Gait,Posture,Transfers, Vestibular Other Concerns Fall Risk High Goals 5 Impairment Falls Shelter Goal (LTG) Pt will deny falling for at least a month to reduce risk of injury. LTG Duration 8 weeks 4 Impairment Lack of HEP Shelter Goal (LTG) Pt will perform progressive HEP with I including balance and LE and core strengthening exercises to improve gait and reduce fall risk. LTG Duration 8 weeks 3 Impairment Decreased gait speed and safety Shelter Goal (LTG) Pt will gait train at least 1200 feet in 6 minutes with or without use of AD to improve community ambulation. LTG Duration 8 weeks 2 Impairment FES 33/64 Shelter Goal (LTG) Pt will present with FES score of no more than 20/64 to reflect less fear of falling and improved quality of life. LTG Duration 8 weeks 1 Impairment Imbalance Shelter Goal (LTG) Pt will perform WNLs on standardized balance test to decrease fall risk. LTG Duration 8 weeks Assessment Summary Assessment Gait training with walking sticks today and other balance exercises. Pt con't to fatigue and have PERES and requires rest breaks. Discussed having DBS settings changed to help with left extremity movement. reports pt has PVCs and so this may make her feel SOB. Physical Therapy Plan Frequency and Duration Frequency of Treatment 2x/Week Duration of treatment (weeks) 8 Plan of Care Start Date 11/03/23 Plan of Care End Date 01/03/24 Therapeutic Interventions Therapeutic Interventions Balance Training,Canalithic Repositioning,Coordination Training,Gait Training,Home Exercise Program,Joint Mobilizations,Manual Therapy, Neuromuscular Re-education, Patient/Caregiver Education, Self-Care/Home Management,Soft Tissue Mobilization,Taping, Therapeutic Activities, Therapeutic Exercises Modalities Cold Pack/Ice Massage,Electric Stimulation,Hot Packs, Ultrasound Next Visit Focus/Plan Next Note Type Treatment Note Next Visit Plan Ongoing balance actitivies and LE strengthening and consider large amplitude exercises and [place] program exercises, consider adding balance exercises for to assist with at home
--- NOTE | 2023-11-30 09:48 | PT.OTN ---
Current Diagnoses Parkinson's disease without dyskinesia, without mention of fluctuations (11/30/23) Unsteadiness on feet (11/30/23) Other abnormalities of gait and mobility (11/30/23) Other reduced mobility (11/30/23) Physical Therapy Treatment Note PT-OP-A Visit Information Start: 10/31/23 09:24 Freq: Status: Active Protocol: Document 11/30/23 09:05 MB (Rec: 11/30/23 09:48 MB [id number]) Out-Patient Physical Therapy Visit Information Visit Information Visit Type Treatment Note Visit Note Prog note with PT 12/08/23 Visit Start Time 09:05 Visit Stop Time 09:45 Visit Number 7 Number of GYNECOLOGY TEACHER Visits 0 PT-OP-B Current Condition Start: 10/31/23 09:24 Freq: Status: Active Protocol: Document 11/03/23 13:00 MB (Rec: 11/03/23 13:21 MB [id number]) Current Condition History of Current Condition Onset Date July 2023 Current Complaints Imbalance and falls History of Current Condition Pt was dx with PD in 2008. She has seen 3 neurologists over the years. She had DBS implant on 07/29/23 mostly d/t severe right UE tremor that is now gone. Pt is right handed. Since the DBS implantation, she has had more imbalance and falling. She has had 4 falls in 2023 since the DBS implantation. She has fallen on the steps and she misjudges curbs and steps. She has not had any real dizziness or light-headedness lately. She has a straight cane that she is learning to use. She has no steps in the house and only one step to get into the house. , Aldo, is very helpful. Aldo does the driving. Devorah does her own bathing and dressing. Other medical history: arthritis, B TKR, LBP, memory loss, nerve block shot LB and spinal stenosis and she sees a spine doctor and will have another MRI Pt had PT for her PD in the past. She did therapy 1-2x/wk. Treatment Goals Patient/Caregiver Goals To improve balance and decrease falls PT-OP-C Subjective Start: 10/31/23 09:24 Freq: Status: Active Protocol: Document 11/30/23 09:05 MB (Rec: 11/30/23 09:48 MB [id number]) OP-PT Subjective Patient Comments Patient Comments Pt and state that they did not adjust the DBS d/t MRI scheduled for tomorrow as a follow-up to spinal injection last Wednesday. Pt with stenosis. Her first spinal injection was in 08/18. The idea was to help with the pain as she goes through PT. She may then have spinal surgery. They did not practice walking with walking sticks d/t the weather. PT-OP-D Balance Start: 10/31/23 09:24 Freq: Status: Active Protocol: Document 11/03/23 13:00 MB (Rec: 11/03/23 15:35 MB [id number]) OP-PT Balance Assessment Sitting Balance Static Sitting Balance Ability Normal Dynamic Sitting Balance Ability Good Standing Balance Static Standing Balance Ability Poor Dynamic Standing Balance Ability Poor Standing Balance Comments LOB and PT must catch pt has she falls posteriorly with attempted Romberg Balance Tests Romberg Romberg Unable, fall posteriorly Other Other Balance Tests Performed TUG in 11 sec with one episode of scuffing foot on carpet and CGA for safety Juarez Fall Scale Copyright Permission PT-OP-G Mobility & Gait Start: 10/31/23 09:24 Freq: Status: Active Protocol: Document 11/03/23 13:00 MB (Rec: 11/03/23 15:35 MB [id number]) OP Gait Assessment Comments Gait Comments Pt with unsteady gait and she brings in a SPC and states she needs to learn how to use it. Pt with very poor performance with SPC and used in right hand and she tends to advance with right foot rather than left foot. Ongoing training in gym and out to waiting area today with little progress. nearby and ed him as well PT-OP-H Neuro Start: 11/03/23 15:35 Freq: Status: Active Protocol: Document 11/03/23 13:00 MB (Rec: 11/03/23 15:37 MB [id number]) Coordination Evaluation Upper Extremity Tests Left Finger to Nose Test Minimal Impairment Right Finger to Nose Test Normal Performance Lower Extremity Tests Left Heel on Boudreaux Test Minimal Impairment Foot Tapping Test Normal Performance Right Heel on Boudreaux Test Normal Performance Foot Tapping Test Minimal Impairment Vital Signs Comments Vital Signs Comments Orthostatic assessment with BP and HR in LUE: supine 125/74, 78; standing 115/70, 82; standing 1' machine will not read again. Pt with mild light -headedness upon standing but no c/o light-headedness at home or when getting up PT-OP-M Strength Start: 10/31/23 09:24 Freq: Status: Active Protocol: Document 11/03/23 13:00 MB (Rec: 11/03/23 15:35 MB [id number]) Hip Strength Hip Manual Muscle Testing Bilateral Flexion (L2) 4+ Good+ Knee Strength Knee Manual Muscle Testing Bilateral Extension (L3) 5 Normal Ankle/Foot Strength Ankle and Foot Manual Muscle Testing Bilateral Dorsiflexion (L4) 5 Normal Toe Strength Toe Manual Muscle Testing Right Great Toe Extension 5 Normal Left Great Toe Extension 5 Normal PT-OP-Q Treatments Start: 10/31/23 09:24 Freq: Status: Active Protocol: Document 11/30/23 09:05 MB (Rec: 11/30/23 09:48 [id number]) Gait Training Gait Activity BIG walking with walking sticks Comments With PT and around gym including corners and carpet and rocael. Pt with improvements in big stepping and arm swing and started at 88 beats and performed best at 85 beats BIG walking without AD Comments 1 lb ankle weights and BIG stepping with checking to see if left arm swing con't and it does not con't much today Neuro Re-Education Treatment Balance Activities // bar activities Comments BIG stepping one foot per step over mini kayden, all hurdles in // bars and pt with improved dysmetria with right LE, especially when leading with the right foot. Must have B UE support on // bars, superv. 1 lb ankle weights used for proprioception PT-OP-T Assessment and Plan Start: 10/31/23 09:24 Freq: Status: Active Protocol: Document 11/30/23 09:05 MB (Rec: 11/30/23 09:48 [id number]) Physical Therapy Assessment Rehab Potential Rehabilitation Potential Good Evaluation Complexity Number of Personal Factors/Comorbidities 1-2 Number of Body Systems Impaired 3 Clinical Presentation at Evaluation Evolving Impairments Impairments Activity Tolerance,Balance, Coordination,Functional Activities,Functional Mobility ,Gait,Posture,Transfers, Vestibular Other Concerns Fall Risk High Goals 5 Impairment Falls Shop Technician Goal (LTG) Pt will deny falling for at least a month to reduce risk of injury. LTG Duration 8 weeks 4 Impairment Lack of HEP Correction Goal (LTG) Pt will perform progressive HEP with I including balance and LE and core strengthening exercises to improve gait and reduce fall risk. LTG Duration 8 weeks 3 Impairment Decreased gait speed and safety Shop Technician Goal (LTG) Pt will gait train at least 1200 feet in 6 minutes with or without use of AD to improve community ambulation. LTG Duration 8 weeks 2 Impairment FES 33/64 Correction Goal (LTG) Pt will present with FES score of no more than 20/64 to reflect less fear of falling and improved quality of life. LTG Duration 8 weeks 1 Impairment Imbalance Correction Goal (LTG) Pt will perform WNLs on standardized balance test to decrease fall risk. LTG Duration 8 weeks Assessment Summary Assessment Ongoing gait and balance practice and DBS as not altered and pt and did not practice gait exercise d/ t weather. Re-ed on importance of practice at home. Physical Therapy Plan Frequency and Duration Frequency of Treatment 2x/Week Duration of treatment (weeks) 8 Plan of Care Start Date 11/03/23 Plan of Care End Date 01/03/24 Therapeutic Interventions Therapeutic Interventions Balance Training,Canalithic Repositioning,Coordination Training,Gait Training,Home Exercise Program,Joint Mobilizations,Manual Therapy, Neuromuscular Re-education, Patient/Caregiver Education, Self-Care/Home Management,Soft Tissue Mobilization,Taping, Therapeutic Activities, Therapeutic Exercises Modalities Cold Pack/Ice Massage,Electric Stimulation,Hot Packs, Ultrasound Next Visit Focus/Plan Next Note Type Treatment Note Next Visit Plan Ongoing balance actitivies and LE strengthening and consider large amplitude exercises and Otago program exercises, consider adding balance exercises for to assist with at home
--- NOTE | 2023-12-03 13:48 | PT.OTN ---
Current Diagnoses Parkinson's disease without dyskinesia, without mention of fluctuations (12/03/23) Unsteadiness on feet (12/03/23) Other abnormalities of gait and mobility (12/03/23) Other reduced mobility (12/03/23) Physical Therapy Treatment Note PT-OP-A Visit Information Start: 10/31/23 09:24 Freq: Status: Active Protocol: Document 12/03/23 13:05 SP (Rec: 12/03/23 13:52 SP [id number]) Out-Patient Physical Therapy Visit Information Visit Information Visit Type Treatment Note Visit Note Prog note with PT 12/08/23 Aldo is Visit Start Time 13:06 Visit Stop Time 13:48 Visit Number 8 Number of ACCOUNT SUPPORT MANAGER Visits 1 Evaluation Information Evaluation Date 11/03/23 PT-OP-B Current Condition Start: 10/31/23 09:24 Freq: Status: Active Protocol: Document 11/03/23 13:00 MB (Rec: 11/03/23 13:21 MB [id number]) Current Condition History of Current Condition Onset Date July 2023 Current Complaints Imbalance and falls History of Current Condition Pt was dx with PD in 2008. She has seen 3 neurologists over the years. She had DBS implant on 07/29/23 mostly d/t severe right UE tremor that is now gone. Pt is right handed. Since the DBS implantation, she has had more imbalance and falling. She has had 4 falls in 2023 since the DBS implantation. She has fallen on the steps and she misjudges curbs and steps. She has not had any real dizziness or light-headedness lately. She has a straight cane that she is learning to use. She has no steps in the house and only one step to get into the house. , Aldo, is very helpful. Aldo does the driving. Devorah does her own bathing and dressing. Other medical history: arthritis, B TKR, LBP, memory loss, nerve block shot LB and spinal stenosis and she sees a spine doctor and will have another MRI Pt had PT for her PD in the past. She did therapy 1-2x/wk. Treatment Goals Patient/Caregiver Goals To improve balance and decrease falls PT-OP-C Subjective Start: 10/31/23 09:24 Freq: Status: Active Protocol: Document 12/03/23 13:05 SP (Rec: 12/03/23 13:52 SP [id number]) OP-PT Subjective Patient Comments Patient Comments Pt reports working as directed with walking in driveway trying to do as did with walk sticks and corner balance. PT-OP-D Balance Start: 10/31/23 09:24 Freq: Status: Active Protocol: Document 11/03/23 13:00 MB (Rec: 11/03/23 15:35 MB [id number]) OP-PT Balance Assessment Sitting Balance Static Sitting Balance Ability Normal Dynamic Sitting Balance Ability Good Standing Balance Static Standing Balance Ability Poor Dynamic Standing Balance Ability Poor Standing Balance Comments LOB and PT must catch pt has she falls posteriorly with attempted Romberg Balance Tests Romberg Romberg Unable, fall posteriorly Other Other Balance Tests Performed TUG in 11 sec with one episode of scuffing foot on carpet and CGA for safety Juarez Fall Scale Copyright Permission PT-OP-G Mobility & Gait Start: 10/31/23 09:24 Freq: Status: Active Protocol: Document 11/03/23 13:00 MB (Rec: 11/03/23 15:35 MB [id number]) OP Gait Assessment Comments Gait Comments Pt with unsteady gait and she brings in a SPC and states she needs to learn how to use it. Pt with very poor performance with SPC and used in right hand and she tends to advance with right foot rather than left foot. Ongoing training in gym and out to waiting area today with little progress. nearby and ed him as well PT-OP-H Neuro Start: 11/03/23 15:35 Freq: Status: Active Protocol: Document 11/03/23 13:00 MB (Rec: 11/03/23 15:37 MB [id number]) Coordination Evaluation Upper Extremity Tests Left Finger to Nose Test Minimal Impairment Right Finger to Nose Test Normal Performance Lower Extremity Tests Left Heel on Boudreaux Test Minimal Impairment Foot Tapping Test Normal Performance Right Heel on Boudreaux Test Normal Performance Foot Tapping Test Minimal Impairment Vital Signs Comments Vital Signs Comments Orthostatic assessment with BP and HR in LUE: supine 125/74, 78; standing 115/70, 82; standing 1' machine will not read again. Pt with mild light -headedness upon standing but no c/o light-headedness at home or when getting up PT-OP-M Strength Start: 10/31/23 09:24 Freq: Status: Active Protocol: Document 11/03/23 13:00 MB (Rec: 11/03/23 15:35 MB [id number]) Hip Strength Hip Manual Muscle Testing Bilateral Flexion (L2) 4+ Good+ Knee Strength Knee Manual Muscle Testing Bilateral Extension (L3) 5 Normal Ankle/Foot Strength Ankle and Foot Manual Muscle Testing Bilateral Dorsiflexion (L4) 5 Normal Toe Strength Toe Manual Muscle Testing Right Great Toe Extension 5 Normal Left Great Toe Extension 5 Normal PT-OP-Q Treatments Start: 10/31/23 09:24 Freq: Status: Active Protocol: Document 12/03/23 13:05 SP (Rec: 12/03/23 13:52 SP [id number]) Therapeutic Exercises Other Exercises OTAGO ex Other Exercise Name LAQ, hip abd, HS curl, mini squat, STS, semi tandem, SLS Reps/Minutes 10 reps each, corner semi tandem /c HTs Comments cues for eccentric control and buttocks during mini squat Gait Training Gait Activity BIG walking with walking sticks Comments With PT and around gym including corners and carpet and rocael. Pt with improvements in big stepping and arm swing and started at 88 beats and performed best at 85 beats PT-OP-T Assessment and Plan Start: 10/31/23 09:24 Freq: Status: Active Protocol: Document 12/03/23 13:05 SP (Rec: 12/03/23 13:52 SP [id number]) Physical Therapy Assessment Goals 5 Impairment Falls Assisted Goal (LTG) Pt will deny falling for at least a month to reduce risk of injury. LTG Duration 8 weeks 4 Impairment Lack of HEP Assisted Goal (LTG) Pt will perform progressive HEP with I including balance and LE and core strengthening exercises to improve gait and reduce fall risk. LTG Duration 8 weeks 3 Impairment Decreased gait speed and safety Assisted Goal (LTG) Pt will gait train at least 1200 feet in 6 minutes with or without use of AD to improve community ambulation. LTG Duration 8 weeks 2 Impairment FES 33/64 Premium Note Interest Calculator Clerk Goal (LTG) Pt will present with FES score of no more than 20/64 to reflect less fear of falling and improved quality of life. LTG Duration 8 weeks 1 Impairment Imbalance Premium Note Interest Calculator Clerk Goal (LTG) Pt will perform WNLs on standardized balance test to decrease fall risk. LTG Duration 8 weeks Assessment Summary Assessment Pt has good response to [place] with only tiring response, cues for elongated posturing. Continues to benefit from use of dowels for support re-ed receiprocal coordinating UE swing during gait, 30% carryover R with dowel assist but can't coordiate both UEs together, will continue to work on. Physical Therapy Plan Frequency and Duration Frequency of Treatment 2x/Week Duration of treatment (weeks) 8 Plan of Care Start Date 11/03/23 Plan of Care End Date 01/03/24 Therapeutic Interventions Therapeutic Interventions Balance Training,Canalithic Repositioning,Coordination Training,Gait Training,Home Exercise Program,Joint Mobilizations,Manual Therapy, Neuromuscular Re-education, Patient/Caregiver Education, Self-Care/Home Management,Soft Tissue Mobilization,Taping, Therapeutic Activities, Therapeutic Exercises Modalities Cold Pack/Ice Massage,Electric Stimulation,Hot Packs, Ultrasound Next Visit Focus/Plan Next Note Type Treatment Note Next Visit Plan Ongoing balance actitivies and LE strengthening and consider large amplitude exercises and continue Otago program exercises, consider adding balance exercises for to assist with at home
--- NOTE | 2023-12-08 15:17 | PT.OTN ---
Current Diagnoses Parkinson's disease without dyskinesia, without mention of fluctuations (12/08/23) Unsteadiness on feet (12/08/23) Other abnormalities of gait and mobility (12/08/23) Other reduced mobility (12/08/23) Physical Therapy Treatment Note PT-OP-A Visit Information Start: 10/31/23 09:24 Freq: Status: Active Protocol: Document 12/08/23 14:33 MB (Rec: 12/08/23 15:16 MB [id number]) Out-Patient Physical Therapy Visit Information Visit Information Visit Type Progress Note Visit Note Aldo is Visit Start Time 14:33 Visit Stop Time 14:13 Visit Number 9 Number of YARN WEIGHT AND STRENGTH TESTER Visits 0 Evaluation Information Evaluation Date 11/03/23 PT-OP-B Current Condition Start: 10/31/23 09:24 Freq: Status: Active Protocol: Document 11/03/23 13:00 MB (Rec: 11/03/23 13:21 MB [id number]) Current Condition History of Current Condition Onset Date July 2023 Current Complaints Imbalance and falls History of Current Condition Pt was dx with PD in 2008. She has seen 3 neurologists over the years. She had DBS implant on 07/29/23 mostly d/t severe right UE tremor that is now gone. Pt is right handed. Since the DBS implantation, she has had more imbalance and falling. She has had 4 falls in 2023 since the DBS implantation. She has fallen on the steps and she misjudges curbs and steps. She has not had any real dizziness or light-headedness lately. She has a straight cane that she is learning to use. She has no steps in the house and only one step to get into the house. , Aldo, is very helpful. Aldo does the driving. Devorah does her own bathing and dressing. Other medical history: arthritis, B TKR, LBP, memory loss, nerve block shot LB and spinal stenosis and she sees a spine doctor and will have another MRI Pt had PT for her PD in the past. She did therapy 1-2x/wk. Treatment Goals Patient/Caregiver Goals To improve balance and decrease falls PT-OP-C Subjective Start: 10/31/23 09:24 Freq: Status: Active Protocol: Document 12/08/23 14:33 MB (Rec: 12/08/23 15:16 MB [id number]) OP-PT Subjective Patient Comments Patient Comments Pt states she is tired of traveling so much. They have a lot of appointments. They would like to finish up the month of treatments. changed the program on the DBS . They have not been able to talk to the doctor. The doctor had added another program option a month ago. On this new C Program, the tremor in both hands is better controlled and they haven't noticed improvement in the arm swing. PT-OP-D Balance Start: 10/31/23 09:24 Freq: Status: Active Protocol: Document 11/03/23 13:00 MB (Rec: 11/03/23 15:35 MB [id number]) OP-PT Balance Assessment Sitting Balance Static Sitting Balance Ability Normal Dynamic Sitting Balance Ability Good Standing Balance Static Standing Balance Ability Poor Dynamic Standing Balance Ability Poor Standing Balance Comments LOB and PT must catch pt has she falls posteriorly with attempted Romberg Balance Tests Romberg Romberg Unable, fall posteriorly Other Other Balance Tests Performed TUG in 11 sec with one episode of scuffing foot on carpet and CGA for safety Juarez Fall Scale Copyright Permission PT-OP-G Mobility & Gait Start: 10/31/23 09:24 Freq: Status: Active Protocol: Document 11/03/23 13:00 MB (Rec: 11/03/23 15:35 MB [id number]) OP Gait Assessment Comments Gait Comments Pt with unsteady gait and she brings in a SPC and states she needs to learn how to use it. Pt with very poor performance with SPC and used in right hand and she tends to advance with right foot rather than left foot. Ongoing training in gym and out to waiting area today with little progress. nearby and ed him as well PT-OP-H Neuro Start: 11/03/23 15:35 Freq: Status: Active Protocol: Document 11/03/23 13:00 MB (Rec: 11/03/23 15:37 MB [id number]) Coordination Evaluation Upper Extremity Tests Left Finger to Nose Test Minimal Impairment Right Finger to Nose Test Normal Performance Lower Extremity Tests Left Heel on Boudreaux Test Minimal Impairment Foot Tapping Test Normal Performance Right Heel on Boudreaux Test Normal Performance Foot Tapping Test Minimal Impairment Vital Signs Comments Vital Signs Comments Orthostatic assessment with BP and HR in LUE: supine 125/74, 78; standing 115/70, 82; standing 1' machine will not read again. Pt with mild light -headedness upon standing but no c/o light-headedness at home or when getting up PT-OP-M Strength Start: 10/31/23 09:24 Freq: Status: Active Protocol: Document 11/03/23 13:00 MB (Rec: 11/03/23 15:35 MB [id number]) Hip Strength Hip Manual Muscle Testing Bilateral Flexion (L2) 4+ Good+ Knee Strength Knee Manual Muscle Testing Bilateral Extension (L3) 5 Normal Ankle/Foot Strength Ankle and Foot Manual Muscle Testing Bilateral Dorsiflexion (L4) 5 Normal Toe Strength Toe Manual Muscle Testing Right Great Toe Extension 5 Normal Left Great Toe Extension 5 Normal PT-OP-Q Treatments Start: 10/31/23 09:24 Freq: Status: Active Protocol: Document 12/08/23 14:33 MB (Rec: 12/08/23 15:16 MB [id number]) Therapeutic Exercises Other Exercises OTAGO ex Other Exercise Name LAQ, hip abd, HS curl, mini squat, STS, semi tandem, SLS Reps/Minutes 10 reps each, corner semi tandem /c HTs Comments Good work with abduction today , alternate hamstring curl, neuro posture squ Gait Training Gait Activity Gait Training Comments Gait training throughout treatment in gym and cues to increase left arm swing and right arm tends to be dysmetric and hyperswing with cues 6MWT Comments Pt gait trains 1171 feet in 6 minutes and she has decreased/ very minimal left arm swing with gait and dysmetria right arm. No dysmetric right leg noted with gait Neuro Re-Education Treatment Balance Activities TUG Comments TUG in 10 sec today without AD Tandem walking Comments Sliding hand, con't to be very challenging for pt, con't to hold for HEP SLS Comments LOB with no UE support PT-OP-T Assessment and Plan Start: 10/31/23 09:24 Freq: Status: Active Protocol: Document 12/08/23 14:33 MB (Rec: 12/08/23 15:16 MB [id number]) Physical Therapy Assessment Rehab Potential Rehabilitation Potential Good Evaluation Complexity Number of Personal Factors/Comorbidities 1-2 Number of Body Systems Impaired 3 Clinical Presentation at Evaluation Evolving Impairments Impairments Activity Tolerance,Balance, Coordination,Functional Activities,Functional Mobility ,Gait,Posture,Transfers, Vestibular Other Concerns Fall Risk High Goals 5 Impairment Falls Care Home Goal (LTG) Pt will deny falling for at least a month to reduce risk of injury. 12/08/23: Pt has not had a fall in month LTG Duration 8 weeks 4 Impairment Lack of HEP Production Helper Goal (LTG) Pt will perform progressive HEP with I including balance and LE and core strengthening exercises to improve gait and reduce fall risk. 12/08/23: Pt is working on arm swing exercises, marching and her Otago exercises LTG Duration 8 weeks 3 Impairment Decreased gait speed and safety Production Helper Goal (LTG) Pt will gait train at least 1200 feet in 6 minutes with or without use of AD to improve community ambulation. 12/08/23: Pt gait trains 1171 feet in 6 minutes and she con' t to have decreased left arm swing and ongoing dysmetric movement of right arm LTG Duration 8 weeks 2 Impairment FES 33/64 Production Helper Goal (LTG) Pt will present with FES score of no more than 20/64 to reflect less fear of falling and improved quality of life. 12/08/23: 27/64, improvement since evaluation LTG Duration 8 weeks 1 Impairment Imbalance Care Home Goal (LTG) Pt will perform WNLs on standardized balance test to decrease fall risk. 12/08/23: TUG in 10 sec without AD LTG Duration 8 weeks Assessment Summary Assessment Pt has normal TUG today, she has not had falls in a month and she has progressed towards HEP and FES goals. She and would like to con't with 4 remaining PT treatments and then d/c PT. Physical Therapy Plan Frequency and Duration Frequency of Treatment 2x/Week Duration of treatment (weeks) 8 Plan of Care Start Date 11/03/23 Plan of Care End Date 01/03/24 Therapeutic Interventions Therapeutic Interventions Balance Training,Canalithic Repositioning,Coordination Training,Gait Training,Home Exercise Program,Joint Mobilizations,Manual Therapy, Neuromuscular Re-education, Patient/Caregiver Education, Self-Care/Home Management,Soft Tissue Mobilization,Taping, Therapeutic Activities, Therapeutic Exercises Modalities Cold Pack/Ice Massage,Electric Stimulation,Hot Packs, Ultrasound Next Visit Focus/Plan Next Note Type Treatment Note Next Visit Plan Con't balance exercises, arm swing with hiking pole assistance with BIG walking
--- NOTE | 2023-12-14 07:24 | PT.OPDS ---
Current Diagnoses Parkinson's disease without dyskinesia, without mention of fluctuations (12/08/23) Unsteadiness on feet (12/08/23) Other abnormalities of gait and mobility (12/08/23) Other reduced mobility (12/08/23) Visit Care Team Role Provider Type Josef Arana MD Family Provider Non-Staff Primary Care Provider Specialty: Medical Address: [address] [place], [address] Email: Mila Hightower MD Attending Provider Non-Staff Referring Provider Specialty: Psychiatry Address: [address], [place]: [place], [place], [address] Email: Visit Number Visit Number 9 Discharge Summary PT-OP-B Current Condition Start: 10/31/23 09:24 Freq: Status: Active Protocol: Document 11/03/23 13:00 MB (Rec: 11/03/23 13:21 MB [id number]) Current Condition History of Current Condition Onset Date July 2023 Current Complaints Imbalance and falls History of Current Condition Pt was dx with PD in 2008. She has seen 3 neurologists over the years. She had DBS implant on 07/29/23 mostly d/t severe right UE tremor that is now gone. Pt is right handed. Since the DBS implantation, she has had more imbalance and falling. She has had 4 falls in 2023 since the DBS implantation. She has fallen on the steps and she misjudges curbs and steps. She has not had any real dizziness or light-headedness lately. She has a straight cane that she is learning to use. She has no steps in the house and only one step to get into the house. , Aldo, is very helpful. Aldo does the driving. Devorah does her own bathing and dressing. Other medical history: arthritis, B TKR, LBP, memory loss, nerve block shot LB and spinal stenosis and she sees a spine doctor and will have another MRI Pt had PT for her PD in the past. She did therapy 1-2x/wk. Treatment Goals Patient/Caregiver Goals To improve balance and decrease falls PT-OP-C Subjective Start: 10/31/23 09:24 Freq: Status: Active Protocol: Document 12/08/23 14:33 MB (Rec: 12/08/23 15:16 MB [id number]) OP-PT Subjective Patient Comments Patient Comments Pt states she is tired of traveling so much. They have a lot of appointments. They would like to finish up the month of treatments. changed the program on the DBS . They have not been able to talk to the doctor. The doctor had added another program option a month ago. On this new C Program, the tremor in both hands is better controlled and they haven't noticed improvement in the arm swing. PT-OP-D Balance Start: 10/31/23 09:24 Freq: Status: Active Protocol: Document 11/03/23 13:00 MB (Rec: 11/03/23 15:35 MB [id number]) OP-PT Balance Assessment Sitting Balance Static Sitting Balance Ability Normal Dynamic Sitting Balance Ability Good Standing Balance Static Standing Balance Ability Poor Dynamic Standing Balance Ability Poor Standing Balance Comments LOB and PT must catch pt has she falls posteriorly with attempted Romberg Balance Tests Romberg Romberg Unable, fall posteriorly Other Other Balance Tests Performed TUG in 11 sec with one episode of scuffing foot on carpet and CGA for safety Juarez Fall Scale Copyright Permission PT-OP-G Mobility & Gait Start: 10/31/23 09:24 Freq: Status: Active Protocol: Document 11/03/23 13:00 MB (Rec: 11/03/23 15:35 MB [id number]) OP Gait Assessment Comments Gait Comments Pt with unsteady gait and she brings in a SPC and states she needs to learn how to use it. Pt with very poor performance with SPC and used in right hand and she tends to advance with right foot rather than left foot. Ongoing training in gym and out to waiting area today with little progress. nearby and ed him as well PT-OP-H Neuro Start: 11/03/23 15:35 Freq: Status: Active Protocol: Document 11/03/23 13:00 MB (Rec: 11/03/23 15:37 MB [id number]) Coordination Evaluation Upper Extremity Tests Left Finger to Nose Test Minimal Impairment Right Finger to Nose Test Normal Performance Lower Extremity Tests Left Heel on Boudreaux Test Minimal Impairment Foot Tapping Test Normal Performance Right Heel on Boudreaux Test Normal Performance Foot Tapping Test Minimal Impairment Vital Signs Comments Vital Signs Comments Orthostatic assessment with BP and HR in LUE: supine 125/74, 78; standing 115/70, 82; standing 1' machine will not read again. Pt with mild light -headedness upon standing but no c/o light-headedness at home or when getting up PT-OP-M Strength Start: 10/31/23 09:24 Freq: Status: Active Protocol: Document 11/03/23 13:00 MB (Rec: 11/03/23 15:35 MB [id number]) Hip Strength Hip Manual Muscle Testing Bilateral Flexion (L2) 4+ Good+ Knee Strength Knee Manual Muscle Testing Bilateral Extension (L3) 5 Normal Ankle/Foot Strength Ankle and Foot Manual Muscle Testing Bilateral Dorsiflexion (L4) 5 Normal Toe Strength Toe Manual Muscle Testing Right Great Toe Extension 5 Normal Left Great Toe Extension 5 Normal PT-OP-T Assessment and Plan Start: 10/31/23 09:24 Freq: Status: Active Protocol: Document 12/14/23 07:22 MB (Rec: 12/14/23 07:24 MB [id number]) Physical Therapy Assessment Assessment Summary Assessment PT received message from front office that pt's , Aldo , called in to report that Devorah fell and fractured her humerus. Will d/c outpatient PT at this time. PT did try to call Aldo but he is currently unavailable. Left message. D/c PT.
== END 2023-12-14 14:35 | disposition home or self-care (01) ==
LOC: PHYS 14:30
PROVIDERS: Family Provider Internal Medicine; PCP Internal Medicine; Referring Provider Psychiatry & Neurology Neurology; Visit Provider Psychiatry & Neurology Neurology
DX: Z74.09 Other reduced mobility (principal); R26.81 Unsteadiness on feet; R26.89 Other abnormalities of gait and mobility; G20.A1 Parkinson's disease without dyskinesia, without mention of fluctuations
CPT/HCPCS: 97110; 97112; 97116; 97161; 97535